=== PATIENT | female | born 1970 | race African-American/Black ===

== ENCOUNTER 2020-02-07 10:03 | Emergency (ER) | payer SELFPAY ==
[~2020-02-07] VITALS: Ht 177.8 cm; Wt 64.5 kg
--- NOTE | 2020-02-07 10:46 | PHYS DOC ---
General Adult EDM: Chief Complaint: BACK PAIN HPI: HPI: 49-year-old female presenting to the emergency department today With back pain. Her back pain started a few days ago. 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 Her pain is an aching pain is worse with movement. It is improved with rest and ice. She denies dysuria or fever. Review of systems is negative for chest pain shortness of breath vomiting fevers chills rash headache or neck pain. All other review of systems negative. ED course: 49-year-old female presenting the emergency department with signs and symptoms suggestive of musculoskeletal back pain. Urine analysis shows a probable urinary tract infection. We will give the patient Bactrim for UTI and cyclobenzaprine as needed for muscle spasms. Will provide a work note for her and have her follow-up with her doctor in 1 to 2 days. She is to return if she has a fever. Heart Score: Risk Factors: Risk Factors: DM, Current or recent (<one month) smoker, HTN, HLP, family history of CAD, obesity. Risk Scores: Score 0 - 3: 2.5% MACE over next 6 weeks - Discharge Home Score 4 - 6: 20.3% MACE over next 6 weeks - Admit for Clinical Observation Score 7 - 10: 72.7% MACE over next 6 weeks - Early Invasive Strategies Physical Exam: PE: Constitutional: Well developed, well nourished, no acute distress, non-toxic appearance. [] HENT: Normocephalic, atraumatic, bilateral external ears normal, oropharynx moist, no oral exudates, nose normal. [] Eyes: PERRLA, EOMI, conjunctiva normal, no discharge. [] Neck: Normal range of motion, no tenderness, supple, no stridor. [] Cardiovascular:Heart rate regular rhythm, no murmur [] Lungs & Thorax: Bilateral breath sounds clear to auscultation [] Abdomen: Bowel sounds normal, soft, no tenderness, no masses, no pulsatile masses. [] No rebound tenderness or guarding. Skin: Warm, dry, no erythema, no rash. [] Back: Patient has some tenderness along the musculature of the left mid thorax region. She is nontender in the midline along the spinous processes. No step- offs. No lacerations abrasions or ecchymosis of the back. Extremities: No tenderness, no cyanosis, no clubbing, ROM intact, no edema. [] Neurologic: Alert and oriented X 3, normal motor function, normal sensory function, no focal deficits noted. [] Psychologic: Affect normal, judgement normal, mood normal. [] EKG: EKG: [] Radiology/Procedures: Radiology/Procedures: [] Course & Med Decision Making: Course & Med Decision Making Pertinent Labs and Imaging studies reviewed. (See chart for details) [] Dragon Disclaimer: Dragon Disclaimer: This electronic medical record was generated, in whole or in part, using a voice recognition dictation system. Departure Departure Impression: Primary Impression: Musculoskeletal back pain Additional Impression: UTI (urinary tract infection) Disposition: HOME, SELF-CARE Condition: STABLE Referrals: NO PCP (PCP) Patient Instructions: Back Pain, Adult, Urinary Tract Infection Additional Instructions: F/U WITH YOUR DOCTOR IN 1-2 DAYS Scripts Cyclobenzaprine Hcl (CYCLOBENZAPRINE HCL) 5 Mg Tablet 1 TAB PO TID PRN PRN for PAIN, #20 TAB Prov: INGRIS YBARRA MD 02/07/20 Sulfamethoxazole/Trimethoprim (BACTRIM DS TABLET) 1 Each Tablet 1 TAB PO BID for 7 Days, #14 TAB Prov: INGRIS YBARRA MD 02/07/20 Justicifation of Admission Dx: Justifications for Admission: Justification of Admission Dx: N/A INGRIS YBARRA MD Feb 07, 2020 10:46
[2020-02-07 12:07] VITALS: BP 112/83
[2020-02-07 13:30] LABS: BILIRUBIN,URINE NEGATIVE (NEG); CLARITY,URINE CLEAR; COLOR,URINE YELLOW; NITRITE,URINE NEGATIVE (NEG); PROTEIN,URINE NEGATIVE (NEG-TRACE)
[2020-02-07 13:54] LABS: BACTERIA,URINE MANY /HPF (0-FEW); SQUAMOUS EPITHELIAL CELL,UR MOD /LPF
[2020-02-07 13:55] LABS: RBC,URINE 0 /HPF (0-2)
[2020-02-07] MEDS ORDERED: SULF1TAB24 PO (14:08)
[2020-02-07] MEDS ORDERED: CYCL5TAB PO (14:08)
== END 2020-02-07 14:38 | disposition home or self-care (01) ==
LOC: ER 10:03
DX: N39.0 Urinary tract infection, site not specified (principal)
CPT/HCPCS: 81001; 81025; 87086; 99283